=== PATIENT | female | born 1975 | race Caucasian/White ===

== ENCOUNTER 2017-06-17 09:58 | Emergency (ER) | payer OTHER | END 2017-06-17 11:02 | disposition home or self-care (01) | LOC: FTE 09:58 → E/R 11:02 | DX: J06.9 Acute upper respiratory infection, unspecified (principal); J45.909 Unspecified asthma, uncomplicated | CPT/HCPCS: 99284; Z7502 ==

== ENCOUNTER 2017-08-05 12:34 | Emergency (ER) | payer OTHER ==
[2017-08-05 13:10] LABS: URINE BLOOD (Dip) POC Trace-intact (NEGATIVE); URINE GLUCOSE (Dip) POC Negative (NEGATIVE); URINE KETONES (Dip) POC Negative (NEGATIVE); URINE LEUKOCYTE EST (Dip) POC Negative (NEGATIVE); URINE NITRITE (Dip) POC Negative (NEGATIVE); URINE TOTAL PROTEIN POC 1+ (NEGATIVE)
[2017-08-05 13:10] LABS: URINE PH (Dip) POC 8.5 (5.0-8.5)
[2017-08-05] MEDS: ONDANSETRON (ODT) 4 MG TAB ODT (13:10)
[2017-08-05] MEDS: KETOROLAC 60 MG INJ IM (13:11)
== END 2017-08-05 13:45 | disposition home or self-care (01) ==
LOC: FTE 12:34
DX: R51 Headache (principal); F17.210 Nicotine dependence, cigarettes, uncomplicated
CPT/HCPCS: 81003; 81025; 96372; 99284-25

== ENCOUNTER 2017-08-12 12:05 | Emergency (ER) | payer OTHER ==
[2017-08-12] MEDS: IBUPROFEN 800 MG TAB PO (12:56)
== END 2017-08-12 13:05 | disposition home or self-care (01) ==
LOC: FTE 12:05
DX: M79.601 Pain in right arm (principal); M79.602 Pain in left arm; J45.909 Unspecified asthma, uncomplicated; Z87.891 Personal history of nicotine dependence
CPT/HCPCS: 99283; Z7502

== ENCOUNTER → 2018-05-29 | Emergency (ER) | payer OTHER ==
[2018-05-29] MEDS: KETOROLAC 30 MG INJ IV (16:49)
[2018-05-29] MEDS: PROCHLORPERAZINE 10 MG INJ IV (16:49)
[2018-05-29] MEDS: SOD CHLORIDE 0.9% 500 ML IV (16:49)
[2018-05-29] MEDS: ONDANSETRON 4 MG INJ IV (16:49)
== END | disposition home or self-care (01) ==
LOC: FTE 15:18
DX: G43.909 Migraine, unspecified, not intractable, without status migrainosus (principal); J45.909 Unspecified asthma, uncomplicated; Z87.891 Personal history of nicotine dependence
CPT/HCPCS: 36415; 81025; 96361; 96374; 96375; 99284-25

== ENCOUNTER 2018-06-25 17:41 | Emergency (ER) | payer OTHER ==
[2018-06-25] MEDS: DEXAMETHASONE (1 MG/ML PO SYG) PO (22:04)
[2018-06-25] MEDS: ALBUTEROL 0.083% (NEB) 2.5 MG/3 ML AMP HHN (22:09)
[2018-06-25] MEDS: IPRATROPIUM (NEB) 0.5 MG/2.5 ML AMP HHN (22:09)
== END 2018-06-25 22:43 | disposition home or self-care (01) ==
LOC: FTE 22:43
DX: J45.21 Mild intermittent asthma with (acute) exacerbation (principal)
CPT/HCPCS: 94664; 99283-25